=== PATIENT | female | born 1985 | race Caucasian/White ===

== ENCOUNTER 2022-04-04 10:34 | Outpatient (CLI) | payer OTHER, SELFPAY | END 2022-04-04 10:35 | disposition home or self-care (01) | LOC: FRMREF 04-10 10:29 | PROVIDERS: PCP Physician Assistant Medical; Visit Provider Family Medicine | DX: R30.9 Painful micturition, unspecified (principal); N39.0 Urinary tract infection, site not specified; B37.31 Acute candidiasis of vulva and vagina | CPT/HCPCS: 87086; 87186 ==

== ENCOUNTER 2022-07-18 11:43 | Outpatient (CLI) | payer OTHER, SELFPAY | END 2022-07-18 11:44 | disposition home or self-care (01) | LOC: LKVREF 07-20 10:46 | PROVIDERS: PCP Physician Assistant Medical; Visit Provider Physician Assistant Medical | DX: R30.0 Dysuria (principal); R35.0 Frequency of micturition | CPT/HCPCS: 87086 ==

== ENCOUNTER 2022-08-28 09:20 | Outpatient (CLI) | payer OTHER, SELFPAY | END 2022-08-28 09:21 | disposition home or self-care (01) | LOC: LKVREF 09:21 | PROVIDERS: PCP Physician Assistant Medical; Visit Provider Physician Assistant Medical | DX: N39.0 Urinary tract infection, site not specified (principal) | CPT/HCPCS: 87086 ==

== ENCOUNTER 2023-02-20 10:17 | Outpatient (CLI) | payer OTHER, SELFPAY | END 2023-02-20 10:18 | disposition home or self-care (01) | LOC: NFLDREF 02-22 06:37 | PROVIDERS: PCP Physician Assistant Medical; Referring Provider Physician Assistant Medical; Visit Provider Physician Assistant Medical | DX: N39.0 Urinary tract infection, site not specified (principal); B37.2 Candidiasis of skin and nail | CPT/HCPCS: 87086 ==

== ENCOUNTER 2023-08-02 13:48 | Outpatient (CLI) | payer OTHER, SELFPAY ==
--- NOTE | 2023-08-02 13:45 | MR_ITS ---
[facility] [address] [facility] [address] Phone:?[phone] Fax:?[phone] Referring Physician Information: Tito Caro [address] [facility] [address] Phone:?[phone] Fax:?[phone] Patient:?Fabienne Hendricks D.O.B:?1985 Sex:?Female Phone:?[phone] [facility] MRN:[id number] Exam Date:?08/02/2023 EXAM: MRI CERVICAL SPINE WITHOUT CONTRAST CLINICAL INFORMATION: Cervicalgia. TECHNICAL INFORMATION: T1, T2 FSE and GRE, and STIR sagittal thin sections through the cervical spine with T2 FSE and GRE axial sections at selected levels. INTERPRETATION: Partially visualized intracranial structures appear normal. No Chiari malformation. Normal signal in the cervical spinal cord. Cervical lordotic straightening. Vertebral body heights are maintained. Normal atlantodental and atlantooccipital articulations. Paraspinal soft tissues appear normal. Multilevel mild disc degeneration throughout the cervical levels. Normal facet joints. No central or foraminal stenosis and no neural impingement. CONCLUSION: 1. Multilevel mild cervical disc degeneration. 2. No acute fracture, significant stenosis, or neural impingement. Electronically signed on 08/05/2023 8:31:00 AM by Kiel Koroma M.D.
== END 2023-08-02 13:49 | disposition home or self-care (01) ==
LOC: MRI 13:48
PROVIDERS: PCP Physician Assistant Medical; Visit Provider Physician Assistant Medical
DX: M54.2 Cervicalgia (principal); M50.30 Other cervical disc degeneration, unspecified cervical region; R20.2 Paresthesia of skin
CPT/HCPCS: 72141

== ENCOUNTER 2023-09-30 11:40 | Outpatient (CLI) | payer OTHER, SELFPAY | END 2023-09-30 11:41 | disposition home or self-care (01) | LOC: LKVREF 11:40 | PROVIDERS: PCP Physician Assistant Medical; Visit Provider Family Medicine | DX: N30.00 Acute cystitis without hematuria (principal) | CPT/HCPCS: 87086 ==

== ENCOUNTER 2024-02-11 07:10 | Outpatient (CLI) | payer OTHER, SELFPAY ==
--- NOTE | 2024-02-11 07:15 | CRLHL7_ITS ---
For Patients: As a result of the Century Cures Act, medical imaging exams and procedure reports are released immediately into your electronic medical record. You may view this report before your referring provider. If you have questions, please contact your health care provider. Indication: Cervicalgia. Technique: MRI of the cervical spine was performed without the use of intravenous contrast. Comparison: MRI cervical spine 08/02/2023. Findings: The vertebral body heights appear maintained without evidence of fracture. No discrete T1 hypointense marrow infiltrating process. The disc space heights appear preserved. Straightening of the cervical lordosis. No abnormal cord signal. C2-3: No spinal canal or neural foraminal narrowing. C3-4: No spinal canal or neural foraminal narrowing. C4-5: No spinal canal or neural foraminal narrowing. C5-6: No spinal canal or neural foraminal narrowing. C6-7: No spinal canal or neural foraminal narrowing. C7-T1: No spinal canal or neural foraminal narrowing. Impression: 1. Minimal spondylosis, without spinal canal or neural foraminal narrowing. 2. No abnormal cord signal. 3. Straightening of the cervical lordosis. Dictated by Carmelo Hughes MD @ 02/11/2024 2:00:35 PM (Electronically Signed)
== END 2024-02-11 07:11 | disposition home or self-care (01) ==
PROVIDERS: PCP Physician Assistant Medical; Visit Provider Family Medicine
DX: M54.2 Cervicalgia (principal); M47.892 Other spondylosis, cervical region; V89.2XXA Person injured in unspecified motor-vehicle accident, traffic, initial encounter
CPT/HCPCS: 72141